=== PATIENT | female | born 1935 | race Caucasian/White ===

== ENCOUNTER 2020-04-13 11:06 | Emergency (ER) | payer MEDICARE ==
[~2020-04-13] VITALS: Ht 160 cm; Wt 69.5 kg
[2020-04-13 11:50] LABS: BASOPHILS # (AUTO) 0.04 x10^3/uL (0-0.1); BASOPHILS % (AUTO) 1 % (0-1); EOSINOPHILS # (AUTO) 0.16 x10^3/uL (0-0.4); EOSINOPHILS % (AUTO) 2 % (1-7); LYMPHOCYTES # (AUTO) 1.53 x10^3/uL (1-3.4); LYMPHOCYTES % (AUTO) 20 % (22-44); MD NO; MEAN CORPUSCULAR HEMOGLOBIN 27.9 pg (27.0-34.8); MEAN CORPUSCULAR HGB CONC 33.4 g/dL (32.4-35.8); MEAN CORPUSCULAR VOLUME 83.5 fL (80-100); MEAN PLATELET VOLUME 8.6 fL (7.4-10.4); MONOCYTES # (AUTO) 0.78 x10^3/uL (0.2-0.8); MONOCYTES % (AUTO) 10 % (2-9); NEUTROPHILS # (AUTO) 5.21 x10^3/uL (1.8-6.8); NEUTROPHILS % (AUTO) 68 % (42-75); PLATELET COUNT 181 x10^3/uL (130-400); RED BLOOD COUNT 4.51 x10^6/uL (3.82-5.3); RED CELL DISTRIBUTION WIDTH 13.1 % (9.6-15.2)
[2020-04-13] MEDS ORDERED: SODIUM CHLORIDE 0.9% 1,000ML IVBOLUS ONE (12:00)
[2020-04-13] MEDS ORDERED: SODIUM CHLORIDE FLUSH 10ML SYR IVF ONE (12:00)
[2020-04-13 12:02] LABS: ALANINE AMINOTRANSFERASE 19 U/L (12-78); ALBUMIN 3.8 g/dL (3.4-5.0); ANION GAP 6 mmol/L (5-15); CALCIUM 8.6 mg/dL (8.5-10.1); CHLORIDE 108 mmol/L (98-107); CREATININE 1.27 mg/dL (0.55-1.02)
[2020-04-13 12:04] LABS: ALKALINE PHOSPHATASE 63 U/L (45-117); BILIRUBIN,TOTAL 0.7 mg/dL (0.2-1.0); TOTAL PROTEIN 6.7 g/dL (6.4-8.2)
--- NOTE | 2020-04-13 12:16 | NUR ---
PT TO ROOM 16 W/ C/O WEAKNESS AND INCONTINENCE X FEW DAYS PER PT. PT OTHERWISE HAS NO SYMPTOMS. AOX4. NEURO INTACT. HX TIA'S. NO CVA. FAMILY AT BEDSIDE. PT RESTING ON GURNEY. NADN. VSS. MONITORS APPLIED.
--- NOTE | 2020-04-13 12:19 | NUR ---
BREAK NOTE: PT. IS RESTING WITH THE CP MONITOR IN PLACE. PT.'S STRAIGHT CATH UA WAS WALKED TO THE LAB. NS BOLUS IS INFUSING. PT. WAS GIVEN A FEW ICE CHIPS FOR HER DRY MOUTH. HOB IS ELEVATED GREATER THAN 30 DEGREES. PT. HAS [address] FOR WARMTH.
[2020-04-13 12:31] LABS: MICROSCOPIC NOT IND
--- NOTE | 2020-04-13 13:21 | NUR ---
PT CHART REVIEWED AND PLACED FOR RECHECK.
[2020-04-13 13:33] VITALS: BP 114/49
--- NOTE | 2020-04-13 13:35 | NUR ---
PT RESTING ON GURNEY. NADN. BROWN.
== END 2020-04-13 14:15 | disposition home or self-care (01) ==
LOC: ED 12:00
DX: R53.1 Weakness (principal); R53.83 Other fatigue; E86.0 Dehydration; R94.31 Abnormal electrocardiogram [ECG] [EKG]
CPT/HCPCS: 36415; 71045; 80053; 81003; 85025; 93005; 96360; 96361; 99285; J7030